=== PATIENT | female | born 1960 ===

== ENCOUNTER 2016-10-30 14:43 | Outpatient (CLI) | payer MEDICARE, OTHER ==
[~2016-10-30] VITALS: Ht 160 cm; Wt 77.3 kg
[2016-10-30 14:53] VITALS: BP 130/69; PULSE 87; RESP 16; Ht 160 cm; Wt 77.3 kg
[2016-10-30] MEDS ORDERED: HYDR-906 PO (15:02)
[2016-10-30] MEDS ORDERED: ONDA4TAB14 PO (15:02)
[2016-10-30] MEDS ORDERED: OMEP20CA16 PO (15:02)
--- NOTE | 2016-10-30 15:22 | PN ---
Date/Time of Note Date/Time of Note DATE: 10/30/16 TIME: 15:16 Assessment/Plan Assessment/Plan Assessment/Plan [facility] Progress Note Date of Service: 10/30/16 Today's Impression & Plan: Stable and doing well. No indication of acute surgical intervention. No obvious signs of complications. Evaluated in ED at [facility] on 10/28/16 with full w/u including CT and labs and no indication of post surgical complication. ? need for EGD to eval for gastritis, reflux, ulcer dz, etc. as an outpatient. 1. F/u with PCP 2. Consider referral to GI for upper endoscopy eval; may benefit from surveillance colonoscopy if not done already 3. F/u with us prn Thank you very much for allowing us to participate in the care of this very nice patient and wonderful family. If there are any questions, please feel free to contact me at . Total visit time: 20 minutes, of which more than half was spent in [id number] discussion with the patient, possibly including time to discuss issues with family, as well as coordination of care with multiple other physicians and providers. Please note: Spelling or grammatical errors in this note are likely due to EHR/ dictation systems and are not reflective of patient care quality. Also please note that the dictation timestamp of this note does not necessarily reflected time of the visit for this service. Updated Clinical Summary: The patient is a very pleasant 56-year-old lady admitted to [facility] through the emergency department at [facility] on 2016 with signs and symptoms consistent with possible early acute cholecystitis supported by history, physical exam, slight elevation of WBC, and CT findings. S /p an otherwise uncomplicated laparoscopic cholecystectomy on 10/13/16 with findings of acute on chronic cholecystitis. D/c home 10/15/16. Reval for pain in ED at [facility] on 10/28/16 with neg w/u. Comorbidities: 1. Chronic cholecystitis with possible early acute cholecystitis. S/p an otherwise uncomplicated laparoscopic cholecystectomy on 10/13/16 with findings of acute on chronic cholecystitis. 2. History of gastritis 3. Known cholelithiasis 4. Anxiety 5. Chronic back pain 6. History of migraines 7. BMI 27.7 Subjective: No major events or complaints. No major pain complaints and reportedly under control with medications. Some residual discomfort mid upper and left upper quadrants. No N/V, SOB or CP. + bowel activity. Objective: Vitals: reviewed; please also see EHR Physical Exam: Lungs: breathing comfortably without tachypnea; no audible wheezes, rales or rhonchi on gross exam Abd: Soft, non-tender, and non-distended; no peritoneal signs or guarding. Incisions c/d/i w/o obvious e/e/d/h. Skin: Appears pink and feels warm to touch. Neuro: Awake, alert and follows commands appropriately Exam/Review of Systems Vital Signs Vitals Vital Signs Date Time Temp Pulse Resp B/P Pulse Ox O2 Delivery O2 Flow Rate FiO2 10/30/16 14:53 97.9 87 16 130/69 94 Room Air ELIAS SAEZ M.D. Oct 30, 2016 15:22
== END 2016-10-30 17:00 | disposition home or self-care (01) ==
LOC: HPC 14:43
PROVIDERS: ATTEND Transplant Surgery
DX: K81.1 Chronic cholecystitis (principal); F41.9 Anxiety disorder, unspecified
CPT/HCPCS: G0463